=== PATIENT | female | born 1960 | race Caucasian/White ===

== ENCOUNTER 2019-02-20 08:05 | Emergency (ER) | payer OTHER ==
[~2019-02-20] VITALS: Ht 154.9 cm; Wt 72.6 kg
== END 2019-02-20 13:30 | disposition home or self-care (01) ==
LOC: ER 08:05
DX: R53.81 Other malaise (principal); F41.8 Other specified anxiety disorders; F28 Other psychotic disorder not due to a substance or known physiological condition